=== PATIENT | male | born 1975 | race Two or more races ===

== ENCOUNTER 2017-03-19 16:08 | Emergency (ER) | payer MEDICAID ==
[~2017-03-19] VITALS: Ht 167.6 cm; Wt 59.0 kg
[2017-03-19 16:27] VITALS: BP 97/61
== END 2017-03-19 22:00 | disposition left against medical advice (07) ==
LOC: ER 16:11
DX: M79.641 Pain in right hand (principal); Z53.21 Procedure and treatment not carried out due to patient leaving prior to being seen by health care provider

== ENCOUNTER 2022-07-11 11:12 | Emergency (ER) | payer MEDICAID ==
[~2022-07-11] VITALS: Ht 167.6 cm; Wt 59.5 kg
[2022-07-11 11:27] VITALS: BP 109/57
[2022-07-11] MEDS ORDERED: IBUP800T27 PO (13:02)
[2022-07-11] MEDS ORDERED: METH750T22 PO (13:02)
[2022-07-11] MEDS ORDERED: IBUPROFEN 800 MG TAB PO ONE (13:15)
== END 2022-07-11 13:20 | disposition home or self-care (01) ==
LOC: ER 11:12
DX: M50.30 Other cervical disc degeneration, unspecified cervical region (principal); M47.812 Spondylosis without myelopathy or radiculopathy, cervical region
CPT/HCPCS: 72040

== ENCOUNTER 2022-10-26 13:40 | Emergency (ER) | payer MEDICAID ==
[~2022-10-26] VITALS: Ht 167.6 cm; Wt 61.3 kg
[~2022-10-26 13:40] MED LIST: IBUP800T27 PO; METH750T22 PO
[2022-10-26] MEDS ORDERED: LIDOCAINE 1% HCL (LOCAL ANESTH.) INJ 20ML MDV IJ ONE (17:45)
[2022-10-26] MEDS ORDERED: TETANUS-DIPTH-ACEL PERTUSSIS 0.5ML SYR Tdap IM ONE (17:45)
[2022-10-26] MEDS ORDERED: CEPH-510 PO (19:11)
[2022-10-26] MEDS ORDERED: HYDR-4902 PO (19:11)
[2022-10-26] MEDS ORDERED: IBUP800T26 PO (19:11)
[2022-10-26] MEDS ORDERED: KETOROLAC TROMETH 60MG/2ML VIAL IM ONE (19:45)
[2022-10-26 20:17] VITALS: BP 114/65
== END 2022-10-26 20:25 | disposition home or self-care (01) ==
LOC: EDUNIT# 13:40 → ER 13:40 → EDBD 13:40 → ER 20:25
DX: S51.812A Laceration without foreign body of left forearm, initial encounter (principal); S01.81XA Laceration without foreign body of other part of head, initial encounter; S01.512A Laceration without foreign body of oral cavity, initial encounter; Z88.8 Allergy status to other drugs, medicaments and biological substances; Y04.0XXA Assault by unarmed brawl or fight, initial encounter; Y93.89 Activity, other specified; Y92.098 Other place in other non-institutional residence as the place of occurrence of the external cause; Y99.8 Other external cause status
CPT/HCPCS: 12004; 12011; 90471; 90715; 96372; 99284; J1885